=== PATIENT | male | born 1950 | race Caucasian/White ===

== ENCOUNTER 2019-01-11 12:28 | Emergency (ER) | payer MEDICARE ==
--- NOTE | 2019-01-11 13:09 | ED Physician Documentation ---
History of Present Illness - Stated complaint Stated Complaint: R LEG PX - Chief complaint Chief Complaint: Ext Problem - History obtained from History obtained from: Patient, Family (his ex ) - History of Present Illness Timing: Yesterday (68-year-old gentleman with history of vascular disease, coronary stents and MS, stroke. He was an inpatient at [facility] for 4 days and released about 4 days ago. He does not know why he was admitted. He says he went in for a headache and his blood was high, not sure exactly what was high. He was released from the hospital and made his way to would be to stay with his ex-. Starting yesterday he has had right lower extremity pain that is worse immediately with walking, not a pattern consistent with claudication. Is from the thigh down to the ankle. There is no swelling. He never has had a DVT.) Review of Systems Constitutional: denies: Fever, Chills Cardiac: denies: Chest pain / pressure, Palpitations Respiratory: denies: Dyspnea, Cough GI: denies: Abdominal Pain, Nausea, Vomiting PD PAST MEDICAL HISTORY - Allergies Allergies/Adverse Reactions: Allergies Allergy/AdvReac Type Severity Reaction Status Date / Time No Known Drug Allergies Allergy Verified 01/11/19 12:35 PD ED PE NORMAL - Vitals Vital signs reviewed: Yes - General General: Alert and oriented X 3, No acute distress - HEENT HEENT: PERRL, EOMI - Neck Neck: Supple, no meningeal sign, No bony TTP - Cardiac Cardiac: RRR, No murmur - Respiratory Respiratory: No respiratory distress, Clear bilaterally - Abdomen Abdomen: Non tender - Extremities Extremities: No edema, No calf tenderness / cord, Other (Good cap refill of the right foot. No tenderness of the calf or thigh. Painless internal and external rotation at the hip and flexion and extension at the knee.) - Neuro Neuro: Alert and oriented X 3, Normal speech - Psych Psych: Normal mood, Normal affect Results - Vitals Vitals: Vital Signs - 24 hr 01/11/19 12:33 Temperature 36.4 C L Heart Rate 72 Respiratory 18 Rate Blood Pressure 125/68 O2 Saturation 97 Oxygen O2 Source Room air - Labs Labs: Laboratory Tests 01/11/19 01/11/19 01/11/19 13:15 13:15 13:15 WBC 9.3 RBC 5.05 Hgb 15.7 Hct 46.1 MCV 91.3 MCH 31.1 H MCHC 34.1 RDW 12.3 Plt Count 285 MPV 9.6 Neut # (Auto) 5.6 Lymph # (Auto) 2.3 Howard # (Auto) 0.8 Eos # (Auto) 0.5 Baso # (Auto) 0.1 Absolute Nucleated RBC 0.00 Nucleated RBC % 0.0 PT 12.1 INR 1.1 Sodium 140 Potassium 4.5 Chloride 106 Carbon Dioxide 21 Anion Gap 13.0 BUN 24 H Creatinine 1.1 Estimated GFR (MDRD) 67 L Glucose 241 H Calcium 9.6 Total Bilirubin 0.7 AST 36 ALT 70 H Alkaline Phosphatase 93 Total Protein 8.2 Albumin 4.4 Globulin 3.8 Albumin/Globulin Ratio 1.2 Lipase 37 PD MEDICAL DECISION MAKING - ED course Complexity details: reviewed old records (Discharge summary from [facility] was received and reviewed. Basically who is admitted for headache but they felt that he was in at risk adults because of poor social situation and impaired can admission likely due to vascular dementia.) ED course: 68-year-old gentleman with leg pain, no physical findings. It happened after hospitalization so obviously DVT needed to be ruled out and an ultrasound for same was negative. He has some vascular dementia and is kind of transient, planning to move to [place] in the short order and I had social work see him and basically they already have a plan in place with paratransit and help at the airport to get him to where he is going. Departure - Departure Disposition: 01 Home, Self Care Clinical Impression: Pain in extremity Clinical Impression: (Ruled Out): Deep vein thrombosis Condition: Good Record reviewed to determine appropriate education?: Yes Instructions: ED Acute Pain [facility] Comments: Call your doctor to arrange a follow-up appointment, make the next available appointment. In the interim, return anytime if worse or if new symptoms develop.
[2019-01-11 13:25] LABS: BASOPHILS # (AUTO) 0.1 10^3/uL (0.0-0.1); BASOPHILS % (AUTO) 0.6 %; EOSINOPHILS # (AUTO) 0.5 10^3/uL (0.0-0.7); EOSINOPHILS % (AUTO) 5.8 %; HGB - HEMOGLOBIN 15.7 g/dL (14.0-18.0); LYMPHOCYTES # (AUTO) 2.3 10^3/uL (1.5-3.5); LYMPHOCYTES % (AUTO) 24.3 %; MEAN CORPUSCULAR HEMOGLOBIN 31.1 pg (27.0-31.0); MEAN CORPUSCULAR HGB CONC 34.1 g/dL (32.0-36.0); MEAN CORPUSCULAR VOLUME 91.3 fL (80.0-94.0); MEAN PLATELET VOLUME 9.6 fL (7.4-11.4); MONOCYTES # (AUTO) 0.8 10^3/uL (0.0-1.0); MONOCYTES % (AUTO) 8.2 %; NEUTROPHILS # (AUTO) 5.6 10^3/uL (1.5-6.6); NEUTROPHILS % (AUTO) 60.7 %; PLT - PLATELET COUNT 285 10^3/uL (130-450); RED BLOOD COUNT 5.05 10^6/uL (4.70-6.10); RED CELL DISTRIBUTION WIDTH 12.3 % (12.0-15.0); WHITE BLOOD COUNT 9.3 x10^3/uL (4.8-10.8)
[2019-01-11 13:43] LABS: ALBUMIN 4.4 g/dL (3.2-5.5); ALBUMIN/GLOBULIN RATIO 1.2 (1.0-2.2); BILIRUBIN,TOTAL 0.7 mg/dL (0.2-1.0); CALCIUM 9.6 mg/dL (8.5-10.3); CREATININE 1.1 mg/dL (0.6-1.2); TOTAL PROTEIN 8.2 g/dL (6.7-8.2)
[2019-01-11 13:50] LABS: INR 1.1 (0.8-1.2); PT - PROTHROMBIN TIME 12.1 secs (9.9-12.6)
--- NOTE | 2019-01-11 14:48 | Ultrasound Report ---
Reason: RLE pain Procedure Date: 01/11/2019 Accession Number: [id number] / [id number] Procedure: US - Duplex Ext Veins Right CPT Code: FULL RESULT: EXAM: RIGHT LOWER EXTREMITY VENOUS ULTRASOUND EXAM DATE: 01/11/2019 02:41 PM. CLINICAL HISTORY: RLE pain. COMPARISON: None. TECHNIQUE: Real-time sonographic vascular imaging was performed by the preschool director through the lower extremity utilizing both color-flow and Doppler spectral analysis. Multiple operations support representative static images were saved for review. FINDINGS: Common Femoral Vein (CFV): Normal. CFV-GSV Junction: Normal. Profunda Femoral Vein (PFV): Normal. Femoral Vein (FV) Prox: Normal. Femoral Vein (FV) Mid: Normal. Femoral Vein (FV) Dist: Normal. Popliteal Vein: Normal. Posterior Tibial Veins: Visualized portions within normal limits. Peroneal Veins: Visualized portions within normal limits. Contralateral Side CFV: Normal. Other: None. IMPRESSION: No evidence for deep venous thrombosis. [facility]
[2019-01-11] MEDS ORDERED: HYDROcod/ACETAM 5/325 MG TABLET PO STA (15:37)
[2019-01-11 15:45] VITALS: BP 140/70
== END 2019-01-11 16:10 | disposition home or self-care (01) ==
LOC: ED 12:28
DX: M79.604 Pain in right leg (principal); F01.50 Vascular dementia, unspecified severity, without behavioral disturbance, psychotic disturbance, mood disturbance, and anxiety; Z86.73 Personal history of transient ischemic attack (TIA), and cerebral infarction without residual deficits; Z95.5 Presence of coronary angioplasty implant and graft; I25.2 Old myocardial infarction
CPT/HCPCS: 36415; 80053; 83690; 85025; 85610; 93971; 99283; 99284; A9270